=== PATIENT | male | born 1980 | race Two or more races ===

== ENCOUNTER 2018-03-31 18:29 | Emergency (ER) | payer OTHER ==
[~2018-03-31] VITALS: Ht 180.3 cm; Wt 122.7 kg
[2018-03-31 18:42] VITALS: Ht 180.3 cm; Wt 122.7 kg
[2018-03-31 23:20] VITALS: BP 138/84
== END 2018-03-31 23:20 | disposition home or self-care (01) ==
LOC: D.ER 18:29
DX: T81.31XA Disruption of external operation (surgical) wound, not elsewhere classified, initial encounter (principal)

== ENCOUNTER 2019-07-09 20:24 | Emergency (ER) | payer OTHER ==
[~2019-07-09] VITALS: Ht 180.3 cm; Wt 121.4 kg
[2019-07-09 20:45] VITALS: Ht 180.3 cm; Wt 121.4 kg
[2019-07-09] MEDS ORDERED: FAMOTIDINE10 MG PO (21:42)
[2019-07-09] MEDS ORDERED: PREDNISONE10 MG PO (21:42)
[2019-07-09 22:10] VITALS: BP 114/70
== END 2019-07-09 22:10 | disposition home or self-care (01) ==
LOC: D.ER 20:24
DX: L23.7 Allergic contact dermatitis due to plants, except food (principal); E11.9 Type 2 diabetes mellitus without complications

== ENCOUNTER 2019-10-23 10:55 | Emergency (ER) | payer OTHER ==
[~2019-10-23] VITALS: Ht 180.3 cm; Wt 123.6 kg
[~2019-10-23 10:55] MED LIST: FAMOTIDINE10 MG PO; PREDNISONE10 MG PO
[2019-10-23 11:00] VITALS: Ht 180.3 cm; Wt 123.6 kg
[2019-10-23 11:22] LABS: BASOPHILS 0.3 % (0-2); EOSINOPHILS 3.3 % (0-7); HEMATOCRIT 46.3 % (42.0-54.0); HEMOGLOBIN 15.5 g/dL (13.5-17.5); IMMATURE GRANULOCYTES 0.8 % (0-5); LYMPHOCYTES 27.2 % (15-50); MCH 29.5 pg (26.0-34.0); MCHC 33.5 g/dL (31.0-37.0); MCV 88.2 fL (80.0-100.0); MEAN PLATELET VOLUME 10.6 fL (7.4-10.4); NEUTROPHILS 61.4 % (40-80); PLATELET COUNT 197 10x3/uL (130-400); RBC 5.25 10x6/uL (4.20-6.10); RDW 12.6 % (11.5-14.5); WBC 7.6 10x3/uL (4.8-10.8)
[2019-10-23 11:30] LABS: CALC OSMOLALITY 278 mosm/kg (275-300); CALCIUM 9.1 mg/dL (8.5-10.1); CARBON DIOXIDE 28.3 mmol/L (21.0-32.0); CHLORIDE - SERUM 103 mmol/L (98-107); CREATININE - SERUM 0.9 mg/dL (0.6-1.3); GLUCOSE 163 mg/dL (74-106); POTASSIUM - SERUM 3.6 mmol/L (3.5-5.1); SODIUM 137 mmol/L (136-145); UREA NITROGEN 14 mg/dL (7-18); eGFR NON AFRICAN AMERICAN > 90 mL/min (90-120)
[2019-10-23 11:36] LABS: APTT 29.1 SECONDS (22.8-39.4); INR 1.05 (0.85-1.17); PROTIME 13.6 SECONDS (11.6-15.0)
[2019-10-23 11:44] LABS: ALBUMIN 3.6 g/dL (3.4-5.0); ALKALINE PHOSPHATASE 75 U/L (30-120); ALT (SGPT) 66 U/L (10-68); CKMB 0.6 U/L (0.0-3.6); CREATINE KINASE 123 UL (21-232); MAGNESIUM - SERUM 2.1 mg/dL (1.8-2.4); PROTEIN - SERUM 7.8 g/dL (6.4-8.2)
[2019-10-23 11:45] LABS: TROPONIN-I < 0.017 ng/mL (0.000-0.060)
[2019-10-23 12:41] VITALS: BP 138/87
[2019-10-23] MEDS ORDERED: PEPCID40 MG PO (14:50)
== END 2019-10-23 15:46 | disposition home or self-care (01) ==
LOC: D.ER 10:55
PROVIDERS: Family Medicine
DX: R07.89 Other chest pain (principal); K29.70 Gastritis, unspecified, without bleeding; R51 Headache; E11.65 Type 2 diabetes mellitus with hyperglycemia; R42 Dizziness and giddiness